=== PATIENT | female | born 1955 | race Caucasian/White ===

== ENCOUNTER → 2017-06-19 14:44 | Outpatient (CLI) | payer OTHER, SELFPAY ==
--- NOTE | 2017-06-19 14:46 | CT_ITS ---
STUDY: LOW DOSE CT LUNG CANCER SCREENING REASON FOR EXAM: Female, 62 years old. 88 pack-year history. RADIATION DOSAGE (If Supplied By Facility): CTDIvol = ( 3.02 ) mGy, DLP = ( 107.94 ) mGycm TECHNIQUE: No contrast was administered. Low dose technique was utilized (average mAS-38 and kVp 120). 1.25 mm axial source images with a slice interval of 1.25-mm were reconstructed in lung windows. 2.5 mm axial source images with a slice interval of 2.5-mm were reconstructed in lung windows. 5.0 mm axial source images with a slice interval of 5.0-mm were reconstructed in soft tissue windows. Nodule measured using lung windows on PACS and/or independent workstation with automated measurement of minimum and maximum diameter. Nodule measurement reported as average diameter rounded to the nearest whole number. Growth is defined as an increase ins size of greater than 1.5 mm. COMPARISON: None. NODULES: Total lung nodules (excluding granulomas): 0 Emphysema: There are mild emphysematous changes. Endobronchial lesion: None Aorta: Minimal atherosclerotic changes of the aorta without aneurysm. Coronary arteries: There are coronary artery calcifications. Heart: Normal in size. Pulmonary artery: Normal in size. Mediastinal nodes: Other chest and abdominal findings: There are degenerative changes of the thoracic spine. CT/Low Dose CT Lung Screening IMPRESSION: Lung-RADS category 1 - Continue annual screening with LDCT in 12 months. IMPORTANT NOTES FOR USE: ACR Lung-RADS Version 1.0 Assessment Categories Release Date: September 08, 2013 Category: Coded 0-4 bases on nodule(s) with highest degree of suspicion. Negative screen is defined as categories 1 and 2; a positive screen is defined as categories 3 and 4. Category 3 and 4A nodules that are unchanged on interval CT should be coded as category 2, and individuals returned to screening in 12 months. Category 4X: Category 3 or 4 nodules with additional imaging findings that increase the suspicion of lung cancer, such as spiculation, GGN that doubles in size in 1 year, enlarged lymph notes, etc. Category Modifiers: S (significant finding unrelated to lung cancer) and C (prior history of treated lung cancer) may be added to the 0-4 Lung-RADS Electronically Signed: Mynor Mejia DO at 17:38 EST Tel [phone], Service support ,
== END ==
PROVIDERS: Family Provider Family Medicine Geriatric Medicine; PCP Family Medicine Geriatric Medicine; Visit Provider Family Medicine Geriatric Medicine
DX: Z12.2 Encounter for screening for malignant neoplasm of respiratory organs (principal); F17.200 Nicotine dependence, unspecified, uncomplicated
CPT/HCPCS: G0297

== ENCOUNTER 2017-07-12 17:08 | Emergency (ER) | payer OTHER, SELFPAY ==
[2017-07-12 17:08] VITALS: BP 123/66; PULSE 78; RESP 17; TEMP 36.6; O2SAT 96; BMI 27.4
--- NOTE | 2017-07-12 17:48 | EKG12_ITS ---
Test Reason : CONFUSION Blood Pressure : / mmHG Vent. Rate : 072 BPM Atrial Rate : 072 BPM P-R Int : 134 ms QRS Dur : 084 ms QT Int : 370 ms P-R-T Axes : 065 029 018 degrees QTc Int : 405 ms Normal sinus rhythm Normal ECG Confirmed by JOSE TANG MD ([id number]), film editor CHELLY SCHAFFER ([id number]) on 07/17/2017 2:20:06 PM Referred By: SEPIDEH
--- NOTE | 2017-07-12 17:48 | CT_ITS ---
STUDY: CT BRAIN WITHOUT CONTRAST REASON FOR EXAM: Female, 62 years old. CONFUSION, RT FACIAL SWELLING RADIATION DOSAGE (If Supplied By Facility): CTDIvol = ( 44.99 ) mGy, DLP = ( 812.98 ) mGycm TECHNIQUE: Transaxial CT imaging of the brain was performed without administration of intravenous contrast material. COMPARISON: MRI March 28, 2017 FINDINGS: Normal soft tissue structures. Normal calvarium. There are calcifications around the carotid artery. These are noted in the cavernous carotid arteries. There is mild cerebral atrophy with widening of the extra-axial spaces and ventricular dilatation. There are areas of decreased attenuation within the white matter tracts of the supratentorial brain, consistent with microvascular disease changes. Normal basal ganglia and thalami. Normal brainstem. There is mild cerebellar atrophy. There is no intracranial hemorrhage. There are no findings of an acute ischemic infarction. Normal visualized paranasal sinuses. CT/Brain/Head without Contrast IMPRESSION: Chronic involutional changes of the brain. There are no acute findings. Electronically Signed: Elian Ortiz MD at 18:37 EST , Service support ,
--- NOTE | 2017-07-12 17:49 | CT_ITS ---
STUDY: CT FACIAL BONES WITH CONTRAST REASON FOR EXAM: Female, 62 years old. RT SIDE FACIAL SWELLING RADIATION DOSAGE (If Supplied By Facility): CTDIvol = ( 29.38 ) mGy, DLP = ( 591.53 ) mGycm TECHNIQUE: The patient was scanned in a multi detector CT scanner. Transaxial imaging was performed following the intravenous administration of 100 ml of Isovue 300 contrast material. Sagittal and coronal images were reconstructed. Individualized dose optimization techniques were used for this CT. COMPARISON: None. FINDINGS: There are soft tissue inflammatory changes overlying the right mandible. Overlying the right anterior maxilla, there is a area of periosteal elevation and abscess formation measuring 8.5 x 6.4 mm. This involves the right lateral incisor. At the level of the right lateral incisor, there is a periodontal lucency consistent for a periodontal abscess. There is underlying breakthrough of the bone with extension into the soft tissue. Series 604 image 60. Series 6 image 35. The thyroid is heterogenous. It contains nodules. This should be further evaluated with ultrasound. This can be performed as an outpatient. Normal orbital tellez and orbital contents. Normal nasal bones and anterior nasal spine. Normal facial bones. There is no demonstrated fracture. Normal visualized paranasal sinuses. CT/Sinus/Facial Bone WITH Contras IMPRESSION: There are soft tissue inflammatory changes overlying the right mandible. Overlying the right anterior maxilla, there is a area of periosteal elevation and abscess formation measuring 8.5 x 6.4 mm. This involves the right lateral incisor. At the level of the right lateral incisor, there is a periodontal lucency with the maxilla consistent for a periodontal abscess. There is underlying breakthrough of the bone with extension into the soft tissue. The thyroid is heterogenous. It contains nodules. This should be further evaluated with ultrasound. This can be performed as an outpatient. Electronically Signed: Elian Ortiz MD at 19:21 EST , Service support ,
[2017-07-12 18:06] LABS: Bacteria 0 SEEN /hpf (None Seen); Mucous, Urine 0 SEEN /hpf (<or=2+)
[2017-07-12 18:12] LABS: Absolute Lymphocyte Count 1.64 X10^3/ul (0.83-4.51); Absolute Neutrophil Count 4.8 X10^3/uL (2.0-7.7); Basophil# 0.01 X10^3/uL; Basophil% 0.1 % (0-1); Eosinophil# 0.05 X10^3/uL; Eosinophils% 0.6 % (0-5); Hematocrit 40.8 % (37-47); Hemoglobin 13.1 g/dl (12.0-15.0); Lymphocyte # 1.64 X10^3/ul (4.0); Mean Corp Hgb Conc 32.1 g/gl (32-36); Mean Corpuscular Hgb 29.5 pg (27.0-32.0); Mean Corpuscular Volume 91.9 fL (81-99); Mean Platelet Vol. 10.9 fl (6.2-12.0); Monocyte# 1.22 X10^3/uL; Monocyte% 15.6 % (0-10); Neutrophil # 4.84 X10^3/uL (2.7-7.7); Neutrophil % 62.2 % (47-70); Platelet Count 120 K/mm3 (150-450); RBC Distribution Width CV 12.9 % (11.6-14.6); RBC Distribution Width SD 42.5 fl (35.1-43.9); Red Blood Count 4.44 M/mm3 (4.2-5.4); White Blood Count 7.8 K/mm3 (4.4-11.0)
[2017-07-12 18:14] LABS: POSITIVE COUNT NO; POSITIVE DIFFERENTIAL NO; POSITIVE MORPHOLOGY NO
[2017-07-12 18:15] LABS: Color, Urine Yellow (Yellow); Glucose, Dipstick Normal (Normal); Ketone-Dipstick 5 mg/dl (Negative); Leukocyte Esterase-Dipstick 25 /ul (Negative); Nitrite-Dipstick Negative (Negative); Occult Blood-Urine 150 /ul (Negative); Protein-Dipstick Negative (Negative); Urine Bilirubin Dipstick Negative (Negative); Urine Clarity Clear (Clear); Urine Urobilinogen 4 mg/dl (Normal)
--- NOTE | 2017-07-12 18:20 | RAD_ITS ---
STUDY: X-RAY CHEST REASON FOR EXAM: Female, 62 years old. Confusion. TECHNIQUE: PA and lateral views of the chest. COMPARISON: Chest CT, June 19, 2017. FINDINGS: The lungs are clear and expanded. There is no demonstrated pleural abnormality. Normal size heart. Normal mediastinum and shakira. Normal visualized pulmonary arteries. Normal visualized aortic arch and descending thoracic aorta. Normal visualized thoracic spine. Normal visualized ribs, clavicles, and shoulders. There is no demonstrated abnormality of the visualized soft tissue structures of the upper abdomen. RAD/Chest PA and Lateral IMPRESSION: No acute cardiopulmonary disease. Electronically Signed: Mynor Mejia DO at 18:42 EST Tel [phone], Service support ,
[2017-07-12 18:22] LABS: International Normalized Ratio 0.9; Partial Thromboplast Time 25.2 Seconds (24.1-36.2); Prothrombin Time (Protime)PT. 12.3 SECONDS (11.7-14.9)
[2017-07-12 18:25] LABS: White Blood Cells 0-5 SEEN /hpf (0-5)
[2017-07-12 18:26] LABS: Red Blood Cells-Urine 5-10 SEEN /hpf (0-5); Squamous Epithelial Cells - UA 0-5 SEEN /hpf (5-10)
[2017-07-12 18:40] LABS: ALB/GLOB Ratio 0.7 RATIO (0.9-2.4); AST(SGOT) 6 U/L (15-37); Alanine Aminotransfer ALT/SGPT 7 U/L (13-56); Albumin, Serum 2.7 g/dL (3.2-5.0); Alkaline Phosphatase 77 U/L (45-117); Anion Gap 6 (5-15); BUN 11 mg/dL (7-18); Calcium,Total 8.3 mg/dL (8.5-10.1); Chloride 100 mmol/L (98-107); Creatinine, Serum 0.69 mg/dL (0.55-1.02); EST Glomerular Filtration Rate 92 mL/min (>60); Est Glom Filt Rate - Afr Amer 112 mL/min (>60); Estimated Creatinine Clearance 74.87 ml/min; Glucose 72 mg/dL (74-106); Lipase 80 U/L (73-393); Potassium 4.7 mmol/L (3.5-5.1); Protein, Total 6.7 g/dL (6.4-8.2); Sodium Level 137 mmol/L (136-145); Thyroid Stim Hormone (TSH) 1.99 uIU/mL (0.358-3.74)
[2017-07-12 18:55] LABS: Alcohol, Blood (Medical)-Serum < 3.0 mg/dL
[2017-07-12 18:57] VITALS: BP 116/68; PULSE 71; RESP 12; O2SAT 96
[2017-07-12 19:04] LABS: Lactic Acid 1.6 mmol/L (0.4-2.0)
[2017-07-12 19:16] LABS: Amphetamine Urine VISTA NEGATIVE (<1000 ng/mL); Barbiturate Urine VISTA NEGATIVE (< 200 ng/mL); Benzodiazepine Urine VISTA NEGATIVE (< 200 ng/mL); Cocaine Urine VISTA NEGATIVE (< 300 ng/mL); Ecstacy Urine VISTA NEGATIVE (< 500 ng/mL); Methadone Urine VISTA NEGATIVE (< 300 ng/mL); PCP Urine VISTA NEGATIVE (< 25 ng/mL); THC Urine VISTA NEGATIVE (< 50 ng/mL); Vista UDS pH Range 6
--- NOTE | 2017-07-12 19:58 | ED.VISSUMM ---
- ER Visit Summary Date of Service: 07/12/17 Chief Complaint: Increased confusion facial swelling History of Present Illness: The patient is a 62 F who is brought in by family because they are concerned she had a stroke. When asked with stroke symptoms she is having a state that she is having some right-sided facial swelling dental pain and mild erythema of the right face. When asked why they believe that this is stroke the states that they found that on the Internet. He states that they believe that she has been slightly more confused than normal. There was a report that she is fallen family is unsure she is fallen and the patient denies that she has fallen. Review of systems is limited based on the patient's dementia and the family not knowing. Physical Examination: Afebrile vital signs are stable Gen: Well-nourished well-developed Head: Normocephalic atraumatic Eyes: Perrl EOMI ENT: TMs clear no rhinorrhea moist mucous membranes there is mild right maxillary facial swelling with minor erythema. There is focal dental decay the right upper lateral incisor region. Neck: Supple no lymphadenopathy no JVD nontender CVS: Regular rate rhythm no murmurs normal S1-S2 Respiratory: No distress clear to auscultation bilaterally chest nontender Abdomen: Soft nontender nondistended normal bowel sounds no masses Back: Nontender Extremity: Nontender no edema Skin: Normal color no rash Neuro: alert orientated ?2 CN II-XII intact normal strength sensation reflexes gait cerebellar Psych: She is rather angry that she is here and continuously nursing staff profanities Test Results: Labs were negative. CT the brain negative CT the maxillofacial bones demonstrates a early dental abscess involving the right lateral incisor. Emergency Department Course and Treatment: She received IV clindamycin. Her and her family are eager to go home. I believe it is reasonable to treat her at home she needs to have early dental follow-up. Impression: 1. Dental abscess of the right lateral incisor 2. Dementia This note was generated with [employer] dictation software. It may contain incorrect words, spelling, and punctuation that were not noted in review of the chart prior to signing ED Disposition - Plan for ED Patient: Disposition: Home or Assisted Living Chief Complaint: Confusion Instructions: ED Abscess Tooth Prescriptions: Clindamycin HCl [Cleocin] 300 mg PO Q6H #40 cap Referrals: Ryan Padilla Chi, MD [Primary Care Provider] - Additional Instructions: You need to see a dentist as soon as possible.
--- NOTE | 2017-07-12 20:02 | ED.DCSUM_ITS ---
- ER Visit Summary Date of Service: 07/12/17 Chief Complaint: Increased confusion facial swelling History of Present Illness: The patient is a 62 F who is brought in by family because they are concerned she had a stroke. When asked with stroke symptoms she is having a state that she is having some right-sided facial swelling dental pain and mild erythema of the right face. When asked why they believe that this is stroke the states that they found that on the Internet. He states that they believe that she has been slightly more confused than normal. There was a report that she is fallen family is unsure she is fallen and the patient denies that she has fallen. Review of systems is limited based on the patient' s dementia and the family not knowing. Physical Examination: Afebrile vital signs are stable Gen: Well-nourished well-developed Head: Normocephalic atraumatic Eyes: Perrl EOMI ENT: TMs clear no rhinorrhea moist mucous membranes there is mild right maxillary facial swelling with minor erythema. There is focal dental decay the right upper lateral incisor region. Neck: Supple no lymphadenopathy no JVD nontender CVS: Regular rate rhythm no murmurs normal S1-S2 Respiratory: No distress clear to auscultation bilaterally chest nontender Abdomen: Soft nontender nondistended normal bowel sounds no masses Back: Nontender Extremity: Nontender no edema Skin: Normal color no rash Neuro: alert orientated ?2 CN II-XII intact normal strength sensation reflexes gait cerebellar Psych: She is rather angry that she is here and continuously nursing staff profanities Test Results: Labs were negative. CT the brain negative CT the maxillofacial bones demonstrates a early dental abscess involving the right lateral incisor. Emergency Department Course and Treatment: She received IV clindamycin. Her and her family are eager to go home. I believe it is reasonable to treat her at home she needs to have early dental follow-up. Impression: 1. Dental abscess of the right lateral incisor 2. Dementia This note was generated with [employer] dictation software. It may contain incorrect words, spelling, and punctuation that were not noted in review of the chart prior to signing ED Disposition - Plan for ED Patient: Disposition: Home or Assisted Living Chief Complaint: Confusion Instructions: ED Abscess Tooth Prescriptions: Clindamycin HCl [Cleocin] 300 mg PO Q6H #40 cap Referrals: Ryan Padilla Chi, MD [Primary Care Provider] - Additional Instructions: You need to see a dentist as soon as possible.
[2017-07-12 20:18] VITALS: BP 117/79; PULSE 73; RESP 12; O2SAT 96
--- NOTE | 2017-07-12 20:19 | ED.RN ---
PT AND FAMILY EDUCATED ON DISCHARGE INSTRUCTIONS. PT FAMILY VERBALIZES UNDERSTANDING. PT IV D/C AND COVERED WITH 2X2 GAUZE DRESSING. MINIMAL BLEEDING NOTED. FAMILY DRESSES PT AND PT AMBULATORY OUT OF ER WITHOUT ASSISTANCE.
== END 2017-07-12 20:22 | disposition home or self-care (01) ==
PROVIDERS: Emergency Provider Emergency Medicine; Family Provider Family Medicine Geriatric Medicine; PCP Family Medicine Geriatric Medicine
DX: K04.7 Periapical abscess without sinus (principal); F03.90 Unspecified dementia, unspecified severity, without behavioral disturbance, psychotic disturbance, mood disturbance, and anxiety; F41.9 Anxiety disorder, unspecified; Z72.0 Tobacco use
CPT/HCPCS: 70450; 70487; 71046; 80053; 80307; 80320; 81001; 83605; 83690; 84443; 84484; 85025; 85610; 85730; 93005; 96365; 99285; J7050; P9612; Q9967; A4216; G0480

== ENCOUNTER → 2017-11-19 16:39 | Outpatient (CLI) | payer OTHER, SELFPAY ==
[2017-11-19 17:34] LABS: Absolute Neutrophil Count 4.1 X10^3/uL (2.0-7.7); Basophil# 0.01 X10^3/uL; Basophil% 0.1 % (0-1); Eosinophil# 0.03 X10^3/uL; Eosinophils% 0.4 % (0-5); Hematocrit 44.3 % (37-47); Lymphocyte % 29.4 % (19-41); Mean Corp Hgb Conc 31.6 g/gl (32-36); Mean Platelet Vol. 10.1 fl (6.2-12.0); Monocyte% 12.6 % (0-10); Neutrophil # 4.09 X10^3/uL (2.7-7.7); Neutrophil % 57.2 % (47-70); Platelet Count 165 K/mm3 (150-450); RBC Distribution Width CV 13.7 % (11.6-14.6); RBC Distribution Width SD 49.4 fl (35.1-43.9); Red Blood Count 4.52 M/mm3 (4.2-5.4); White Blood Count 7.2 K/mm3 (4.4-11.0)
[2017-11-19 17:44] LABS: POSITIVE COUNT NO; POSITIVE DIFFERENTIAL NO; POSITIVE MORPHOLOGY NO
[2017-11-19 18:08] LABS: ALB/GLOB Ratio 0.5 RATIO (0.9-2.4); AST(SGOT) 10 U/L (15-37); Alanine Aminotransfer ALT/SGPT 8 U/L (13-56); Albumin, Serum 2.6 g/dL (3.2-5.0); Alkaline Phosphatase 67 U/L (45-117); Anion Gap 7 (5-15); BUN 8 mg/dL (7-18); BUN/Creat Ratio 9.8 RATIO (10-20); Calcium,Total 8.4 mg/dL (8.5-10.1); Chloride 98 mmol/L (98-107); Creatinine, Serum 0.82 mg/dL (0.55-1.02); EST Glomerular Filtration Rate 76 mL/min (>60); Est Glom Filt Rate - Afr Amer 92 mL/min (>60); Globulin 4.8 g/dL (2.2-4.2); Glucose 94 mg/dL (74-106); Potassium 4.3 mmol/L (3.5-5.1); Protein, Total 7.4 g/dL (6.4-8.2); Sodium Level 133 mmol/L (136-145)
== END ==
PROVIDERS: Family Provider Family Medicine Geriatric Medicine; PCP Family Medicine Geriatric Medicine; Visit Provider Family Medicine Geriatric Medicine
DX: R53.83 Other fatigue (principal); N39.0 Urinary tract infection, site not specified
CPT/HCPCS: 36415; 80053; 84443; 85025; 87086; 87088; 87186

== ENCOUNTER → 2018-01-09 16:39 | Outpatient (CLI) | payer OTHER, SELFPAY ==
[2018-01-09 17:17] LABS: Hematocrit 41.5 % (37-47); Hemoglobin 13.5 g/dl (12.0-15.0); Mean Corp Hgb Conc 32.5 g/gl (32-36); Mean Corpuscular Hgb 30.8 pg (27.0-32.0); Mean Corpuscular Volume 94.7 fL (81-99); Mean Platelet Vol. 10.2 fl (6.2-12.0); Platelet Count 176 K/mm3 (150-450); RBC Distribution Width SD 44.9 fl (35.1-43.9); Red Blood Count 4.38 M/mm3 (4.2-5.4); White Blood Count 5.7 K/mm3 (4.4-11.0)
[2018-01-09 17:19] LABS: Scan Indicated on CBC? Y/N NO
== END ==
PROVIDERS: Family Provider Family Medicine Geriatric Medicine; PCP Family Medicine Geriatric Medicine; Visit Provider Nurse Practitioner Acute Care
DX: N39.0 Urinary tract infection, site not specified (principal)
CPT/HCPCS: 36415; 85027

== ENCOUNTER → 2018-04-15 16:37 | Outpatient (CLI) | payer OTHER, SELFPAY ==
[2018-04-15 18:55] LABS: M R Staph aureus DNA By PCR Negative (Negative); Staph aureus DNA By PCR NEGATIVE (Negative)
[2018-04-15 18:56] LABS: Probe Check PASS
== END ==
PROVIDERS: Family Provider Family Medicine Geriatric Medicine; PCP Family Medicine Geriatric Medicine; Visit Provider Family Medicine Geriatric Medicine
DX: L89.899 Pressure ulcer of other site, unspecified stage (principal); B95.62 Methicillin resistant Staphylococcus aureus infection as the cause of diseases classified elsewhere
CPT/HCPCS: 36415; 87070; 87077; 87186; 87205; 87640